=== PATIENT | male | born 1950 | race Two or more races ===

== ENCOUNTER 2024-09-11 12:24 | Inpatient (IN) | payer OTHER ==
[~2024-09-11] VITALS: Ht 152.4 cm; Wt 74.8 kg
[2024-09-11] MEDS ORDERED: LevETIRAcetam 500 MG/5 ML VIAL IV SCH ×2 (12:31→21:00)
[2024-09-11] MEDS ORDERED: AMLODIPINE-OLM1 EAC2 (12:39)
[2024-09-11] MEDS ORDERED: LORazepam 2 MG/ML VIAL IM ONE (12:45)
[2024-09-11] MEDS ORDERED: PIPERACILLIN/TAZOBACTAM SODIUM 3.375 GM VIAL IV ONE (12:45)
[2024-09-11] MEDS ORDERED: 0.9 % SODIUM CHLORIDE 1,000 ML IV ONE (12:45)
[2024-09-11] MEDS ORDERED: CRESTOR40 MG PO (13:26)
[2024-09-11] MEDS ORDERED: BISOPROLOL-HCT1 EAC1 PO (13:27)
[2024-09-11 13:34] LABS: URINE APPEARANCE Clear; URINE BILIRRUBIN Negative (NEGATIVE); URINE BLOOD Trace; URINE COLOR Yellow; URINE KETONE Trace (NEGATIVE); URINE LEUKOCYTE Negative; URINE NITRATE Negative; URINE UROBILINOGEN 0.2 E.U./dl
[2024-09-11 13:35] LABS: URINE BACTERIA 96.6 uL (0.0-1933); URINE CAST 4.27 uL (0.0-1.40); URINE RBC 18.1 uL (0.0-20.8); URINE WBC 11.8 uL (0.0-23.2)
[2024-09-11 13:41] LABS: HEMATOCRIT 42.2 % (39.0-48.0); HEMOGLOBIN 14.3 g/dL (13-16.00); MEAN CELL VOLUME 91.5 fL (80.0-100.00); MEAN CORPUSCULAR HEMOGLOBIN 31.1 pg (27.00-32.0); PLATELET COUNT 319 K/uL (150-450); RED BLOOD COUNT 4.61 M/uL (4.00-6.00); RED CELL DISTRIBUTION WIDTH 13.9 % (11.5-14.5)
[2024-09-11 13:53] LABS: URINE EPITHELIAL CELLS 1.1 uL (0.0-38.8); URINE GLUCOSE 250 MG/DL (NEGATIVE); URINE PROTEIN 100 (NEGATIVE)
[2024-09-11 13:56] LABS: COCAINE POSITIVE (NEGATIVE); METHADONE NEGATIVE (NEGATIVE); OPIATES NEGATIVE (NEGATIVE); THC ( Cannabinoids) POSITIVE (NEGATIVE)
[2024-09-11 14:10] LABS: INR 1.05; PARTIAL THROMBOPLASTIN TIME 25.6 SECONDS (22.0-34.0); PROTHROMBIN TIME 11.4 SECONDS (9.0-11.5)
[2024-09-11 14:32] LABS: ALBUMIN 4.3 gm/dL (3.4-5.0); BILIRUBIN TOTAL 0.53 mg/dL (0.3-1.2); CALCIUM 9.7 mg/dL (8.5-10.1); CREATININE SERUM 1.31 mg/dL (0.70-1.30); GFR 53.34; GLOBULINA 3.4 G/DL (2.4-3.5); POTASSIUM 4.06 mEq/L (3.5-5.1); TOTAL PROTEIN 7.7 gm/dL (6.4-8.2)
[2024-09-11] MEDS ORDERED: LEUCOVORIN CALCIUM IV ONE (16:00)
[2024-09-11] MEDS ORDERED: MULTIVIT INFUSN,ADULT 4,VIT K 10 ML VIAL IV ONE (16:00)
[2024-09-11] MEDS ORDERED: LORazepam 2 MG/ML VIAL IV ONE (16:00)
[2024-09-11] MEDS ORDERED: THIAMINE HCL 100 MG/ML 2 ML VIAL IV ONE (16:00)
[2024-09-11] MEDS ORDERED: LevETIRAcetam 500 MG/5 ML VIAL IV ONE (22:18)
[2024-09-11] MEDS ORDERED: 0.9 % SODIUM CHLORIDE 1,000 ML IV SCH (23:30)
[2024-09-11] MEDS ORDERED: ONDANSETRON HCL 4 MG in 0.9 % SODIUM CHLORIDE 50 ML IV PRN (23:30)
[2024-09-11] MEDS ORDERED: ENALAPRILAT DIHYDRATE 1.25 MG/ML VIAL IV PRN (23:30)
[2024-09-11] MEDS ORDERED: ACETAMINOPHEN 500 MG GEL..CAP PO PRN (23:30)
[2024-09-12] VITALS (19 sets, daily range): BP systolic 92–166; BP diastolic 67–99; O2SAT 97–100
[2024-09-12 05:28] LABS: MAGNESIUM 2.2 mg/dL (1.8-2.4); PHOSPHOROUS 2.7 mg/dL (2.5-4.9); TSH 1.49 uIU/mL (0.358-3.74)
[2024-09-12] MEDS ORDERED: THIAMINE HCL 100 MG/ML 2 ML VIAL IV SCH (09:00)
[2024-09-12] MEDS ORDERED: ATORVASTATIN CALCIUM 40 MG TABLET PO SCH (09:00)
[2024-09-12] MEDS ORDERED: FAMOTIDINE/PF 20 MG in 0.9 % SODIUM CHLORIDE 8 ML IV PUSH SCH (09:00)
[2024-09-12] MEDS ORDERED: AMLODIPINE BESYLATE 5 MG TABLET PO SCH (09:00)
[2024-09-12] MEDS ORDERED: LORazepam 2 MG/ML VIAL IV PUSH PRN (11:00)
[2024-09-12] MEDS ORDERED: hydrALAZINE HCL 20 MG VIAL IV PRN (11:00)
[2024-09-12] MEDS ORDERED: METOPROLOL SUCCINATE 25 MG TAB.SR.24H PO NR (11:30)
[2024-09-12] MEDS ORDERED: PANTOPRAZOLE SODIUM 40 MG/VIAL VIAL IV PUSH NR (11:30)
[2024-09-12] MEDS ORDERED: LevETIRAcetam 500 MG TAB. PO SCH (17:00)
[2024-09-12] MEDS ORDERED: ENALAPRIL MALEATE 10 MG TABLET PO SCH (17:00)
[2024-09-12] MEDS ORDERED: DIVALPROEX SODIUM 250 MG TABLET.DR PO SCH (17:00)
[2024-09-12] MEDS ORDERED: LevETIRAcetam 5 MG/1 ML REDILUIDO IV SCH (21:00)
[2024-09-12] MEDS ORDERED: PANTOPRAZOLE SODIUM 40 MG/VIAL VIAL IV PUSH SCH (21:00)
[2024-09-13] VITALS (10 sets, daily range): BP systolic 96–129; BP diastolic 57–786; O2SAT 94–100
[2024-09-13] MEDS ORDERED: METOPROLOL SUCCINATE 25 MG TAB.SR.24H PO SCH (09:00)
[2024-09-13 15:19] LABS: HEMATOCRIT 37.6 % (39.0-48.0); HEMOGLOBIN 12.7 g/dL (13-16.00); MEAN CELL VOLUME 91.4 fL (80.0-100.00); MEAN CORPUSCULAR HEMOGLOBIN 30.9 pg (27.00-32.0); MEAN CORPUSCULAR HGB CONC 33.8 g/dl (32.0-36.0); PLATELET COUNT 236 K/uL (150-450); RED BLOOD COUNT 4.12 M/uL (4.00-6.00); RED CELL DISTRIBUTION WIDTH 13.4 % (11.5-14.5)
[2024-09-13 16:16] LABS: ALBUMIN 3.5 gm/dL (3.4-5.0); BILIRUBIN TOTAL 0.65 mg/dL (0.3-1.2); CALCIUM 9.1 mg/dL (8.5-10.1); CREATININE SERUM 0.87 mg/dL (0.70-1.30); GFR 85.54; GLOBULINA 2.9 G/DL (2.4-3.5); MAGNESIUM 2.2 mg/dL (1.8-2.4); PHOSPHOROUS 2.7 mg/dL (2.5-4.9); POTASSIUM 4.45 mEq/L (3.5-5.1); TOTAL PROTEIN 6.4 gm/dL (6.4-8.2)
[2024-09-13] MEDS ORDERED: ALPRAzolam 0.25 MG TABLET PO SCH (17:00)
[2024-09-13] MEDS ORDERED: SODIUM CL 0.9% 50 ML IV.SOLN IV ONE (22:29)
[2024-09-14 01:18] VITALS: BP 106/73
[2024-09-14 08:31] VITALS: BP 109/67; O2SAT 96
[2024-09-14] MEDS ORDERED: BISOPROLOL-HCT1 EAC1 PO (08:53)
[2024-09-14] MEDS ORDERED: ALPRAZOLAM0.25 MG PO (08:54)
[2024-09-14] MEDS ORDERED: DIVALPROEX SOD250 M1 PO (08:54)
[2024-09-14] MEDS ORDERED: CANDESARTAN CILE8 MG PO (08:54)
[2024-09-14] MEDS ORDERED: ROSUVASTATIN CA20 MG PO (08:56)
[2024-09-14] MEDS ORDERED: MEMANTINE HCL5 MG PO (08:56)
[2024-09-14] MEDS ORDERED: SYMBICORT 16010.2 GM IH (08:56)
[2024-09-14] MEDS ORDERED: PEPCID AC20 MG PO (08:57)
[2024-09-14] MEDS ORDERED: CANDESARTAN CILEXETIL 8 MG TAB PO SCH (09:00)
== END 2024-09-14 12:13 | disposition home or self-care (01) | DRG 100 ==
LOC: ER 12:24 → ICU-2 09-12 00:03 → MEDJ 09-13 15:36
PROVIDERS: General Practice; ADMIT Internal Medicine; ATTEND Internal Medicine
PROC: B020ZZZ Computerized Tomography (CT Scan) of Brain (ICD-10-PCS; principal; 2024-09-11)
PROC: BW38ZZZ Magnetic Resonance Imaging (MRI) of Head (ICD-10-PCS; 2024-09-11)
PROC: BR20ZZZ Computerized Tomography (CT Scan) of Cervical Spine (ICD-10-PCS; 2024-09-11)
PROC: BW24ZZZ Computerized Tomography (CT Scan) of Chest and Abdomen (ICD-10-PCS; 2024-09-12)
DX: G40.89 Other seizures (principal); I63.89 Other cerebral infarction; F14.20 Cocaine dependence, uncomplicated; F10.939 Alcohol use, unspecified with withdrawal, unspecified; T40.5X5A Adverse effect of cocaine, initial encounter; W13.3XXA Fall through floor, initial encounter; Y93.55 Activity, bike riding; Y92.410 Unspecified street and highway as the place of occurrence of the external cause; F12.20 Cannabis dependence, uncomplicated; I10 Essential (primary) hypertension; E78.5 Hyperlipidemia, unspecified; G40.909 Epilepsy, unspecified, not intractable, without status epilepticus
CPT/HCPCS: 70544